=== PATIENT | female | born 1960 | race Two or more races ===

== ENCOUNTER 2022-07-15 08:37 | Outpatient (CLI) | payer OTHER | END 2022-07-15 08:45 | disposition home or self-care (01) | LOC: RX STUDY 08:37 | PROVIDERS: ATTEND Internal Medicine Gastroenterology | DX: R13.10 Dysphagia, unspecified (principal) ==

== ENCOUNTER 2025-05-09 06:00 | Day surgery (SDC) | payer OTHER ==
[2025-05-04 11:50] LABS: URINE APPEARANCE Clear; URINE BILIRRUBIN Negative (NEGATIVE); URINE BLOOD Negative; URINE COLOR Yellow; URINE KETONE Negative (NEGATIVE); URINE LEUKOCYTE Negative; URINE NITRATE Negative; URINE PROTEIN Negative (NEGATIVE); URINE UROBILINOGEN 0.2 E.U./dl
[2025-05-04 11:50] LABS: BASO % 0.9 % (0.1-1.2); EOS # 0.25 (0.04-0.54); EOS % 4.6 % (0.7-7.0); LYMPH # 1.69 (1.18-3.74); LYMPH % 31.4 % (19.3-53.1); MEAN PLATELET VOLUME 9.20 fl (9.4-12.4); MONO # 0.44 (0.24-0.82); MONO % 8.2 % (4.7-12.5); NEUT # 2.95 (1.56-6.13); NEUT % 54.7 % (34.0-71.1); RED CELL DISTRIBUTION WIDTH 13.6 % (11.6-14.4)
[2025-05-04 11:51] LABS: URINE BACTERIA 256.8 uL (0.0-1933); URINE EPITHELIAL CELLS 21.9 uL (0.0-38.8); URINE RBC 4.8 uL (0.0-20.8); URINE WBC 5.2 uL (0.0-23.2)
[2025-05-04 12:14] LABS: INR 1.01
[2025-05-04 12:23] LABS: URINE CAST 0.00 uL (0.0-1.40); URINE GLUCOSE >=1000 MG/DL (NEGATIVE)
[2025-05-04 13:21] LABS: ALT/SGPT 23.0 U/L (12-78); AST/SGOT 18.0 U/L (15-37); BILIRUBIN TOTAL 0.75 mg/dL (0.3-1.2); BUN CREA RATIO 19.0 (7.0-25.0); CREATININE SERUM 0.58 mg/dL (0.55-1.02); GFR 105.34; GLOBULINA 3.5 G/DL (2.4-3.5); GLUCOSE FASTING 94.0 mg/dL (65-100); OSMOLALITY SERUM 284.0 MOSM/KG (275-295)
[~2025-05-09 06:00] MED LIST: JARDIANCE10 MG; LEVO-T150 MCG; LIPITOR40 M1; LOSARTAN POTAS100 MG; MIRTAZAPINE15 M1; NORVASC10 MG; PAXIL 10MG; PROAIR RESPICL90 MCG; SINGULAIR10 MG PO; TEMAZEPAM30 MG; XANAX0.25 MG; ZANAFLEX4 M1; ZETIA10 MG; [UNRECOGNIZED DRUG - OTHER]
[2025-05-09] MEDS ORDERED: CEFAZOLIN SODIUM 1,000 MG VIAL ONE (07:26)
[2025-05-09] MEDS ORDERED: BUPIVACAINE HCL/MPF 0.5% 30ML VIAL ONE ×2 (08:00→08:40)
[2025-05-09] MEDS ORDERED: POVIDONE-IODINE 118 ML BOTT TOP ONE (08:01)
[2025-05-09] MEDS ORDERED: LIDOCAINE HCL 1% 10ML VIAL ONE (08:01)
== END 2025-05-09 13:20 | disposition home or self-care (01) ==
LOC: CIR.AMB 06:00
PROVIDERS: ATTEND Colon & Rectal Surgery
DX: R15.9 Full incontinence of feces (principal); Z88.5 Allergy status to narcotic agent
CPT/HCPCS: 64561; C1778

== ENCOUNTER 2025-05-23 08:00 | Day surgery (SDC) | payer OTHER ==
[~2025-05-23 08:00] MED LIST changes: +BUPIVACAINE HCL/Mpf 0.5% 10ML VIAL ONE; +DIBUCAINE 30 GM TUBE ONE; +HEMOSTATIC MATRIX 1 KIT KIT TOP ONE; +HYDROGEN PEROXIDE 473 ML BOTTLE TOP ONE; +LIDOCAINE HCL 1%/EPINEPHRINE 20ML VIAL IJ ONE; +POVIDONE-IODINE 118 ML BOTT TOP ONE
[2025-05-23] MEDS ORDERED: CEFAZOLIN SODIUM 1,000 MG VIAL ONE (09:13)
== END 2025-05-23 11:55 | disposition home or self-care (01) ==
LOC: CIR.AMB 08:00
PROVIDERS: ATTEND Colon & Rectal Surgery
DX: R15.9 Full incontinence of feces (principal); Z88.5 Allergy status to narcotic agent; Z88.8 Allergy status to other drugs, medicaments and biological substances
CPT/HCPCS: 64590; C1767